=== PATIENT | male | born 1975 | race Caucasian/White ===

== ENCOUNTER 2018-02-15 22:11 | Emergency (ER) | payer SELFPAY ==
[2018-02-15 22:16] VITALS: BP 143/91; PULSE 74; TEMP 98.2; BMI 32.9
--- NOTE | 2018-02-16 00:38 | PDOC ---
Attending Attestation - HPI HPI: 02/16/18 01:16 The patient is a 42 year old male with no past medical history here today for evaluation of chest pain. The patient reports that his chest pain has been going on for one week and has been getting worse. He reports that his chest pain comes in episodes of 30 minutes and radiates to his back. He describes his chest pain as a burning sensation. Patient denies headache, lightheadedness. Denies fever, chills. Denies chest pain, shortness of breath. Denies nausea, vomiting, diarrhea, abdominal pain. Denies lower extremity edema. Denies any numbness or tingling. Allergies: NKA Social history: Denies alcohol use. Confirms tobacco use (5 cigarettes per week) . PCP: none - Physicial Exam PE: 02/16/18 01:48 GENERAL: Awake, alert, and fully oriented, in no acute distress HEAD: No signs of trauma EYES: PERRLA, EOMI, sclera anicteric, conjunctiva clear ENT: Auricles normal inspection, hearing grossly normal, nares patent, oropharynx clear without exudates. Moist mucosa NECK: Normal ROM, supple, no lymphadenopathy, JVD, or masses LUNGS: Breath sounds equal, clear to auscultation bilaterally. No wheezes, and no crackles HEART: Regular rate and rhythm, normal S1 and S2, no murmurs, rubs or gallops ABDOMEN: Soft, nontender, normoactive bowel sounds. No guarding, no rebound. No masses EXTREMITIES: Normal range of motion, no edema. No clubbing or cyanosis. No cords, erythema, or tenderness NEUROLOGICAL: Cranial nerves II through XII grossly intact. Normal speech, normal gait SKIN: Warm, Dry, normal turgor, no rashes or lesions noted. <Mike Solis - Last Filed: 02/16/18 01:52> - Resident Resident Name: Roberto William - Medical Decision Making 02/16/18 21:56 PT presents to the ED complaining of atypical chest pain. Low risk for cardiac disease. EKG and troponin within normal limits. HEART score is 2. Will discharge home with referral to medical clinic. <Mirtha Diaz - Last Filed: 02/16/18 22:00>
--- NOTE | 2018-02-16 01:37 | PDOC ---
History of Present Illness - General Chief Complaint: Chest Pain Stated Complaint: CHEST PAIN, BACK PAIN Time Seen by Provider: 02/16/18 00:37 History Source: Patient Exam Limitations: No Limitations - History of Present Illness Initial Comments: 02/16/18 01:25 Pt. is a 42 y.o. M w/ PMHx/PSHx. 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 Pt. states that the pain began 1 week ago and has gotten progressively worse. Pt. states that it began as 1 episode of constant burning pain per day that lasted 20-30 min and is not happening 2-3 times per day. Pt. denies any association with food intake, activity or position. Pt. denies any family history of cardiac disease. Pt. denies this ever happening before. Pt. denies shortness of breath, radiation of pain to the jaw or left arm, or numbness/tingling in extremities. Pt. states he smokes 1-2 cigarettes per day intermittently. Pt. does not have a PCP and has not seen a physician other than his District Attorney 3 months ago. Past History - Travel Traveled outside of the country in the last 30 days: No Close contact w/someone who was outside of country & ill: No - Past Medical History Allergies/Adverse Reactions: Allergies Allergy/AdvReac Type Severity Reaction Status Date / Time No Known Allergies Allergy Verified 02/15/18 22:16 Anemia: No Asthma: No Cancer: No Cardiac Disorders: No Hx Myocardial Infarction: No CVA: No COPD: No CHF: No DVT: No Diabetes: No - Surgical History Abdominal Surgery: No Cardiac Surgery: No Gastric Stapling: No GI Surgery: No - Suicide/Smoking/Psychosocial Hx Smoking History: Never smoked Have you smoked in the past 12 months: No Information on smoking cessation initiated: No Hx Alcohol Use: No Drug/Substance Use Hx: No Review of Systems - Review of Systems Able to Perform ROS?: Yes Is the patient limited Vietnamese proficient: Yes Constitutional: No: Chills, Fever, Night Sweats, Weakness HEENTM: Yes: Blurred Vision. No: Throat Pain, Difficulty Swallowing Respiratory: No: Cough, Orthopnea, Shortness of Breath, SOB with Exertion, SOB at Rest, Wheezing, Productive cough Cardiac (ROS): Yes: Chest Pain. No: Edema, Irregular Heart Rate, Lightheadedness, Palpitations ABD/GI: No: Constipated, Diarrhea, Difficulty Swallowing, Nausea, Vomiting : No: Burning, Dysuria, Discharge, Frequency, Flank Pain Musculoskeletal: Yes: Back Pain. No: Muscle Pain, Muscle Weakness Neurological: No: Headache, Numbness, Paresthesia, Seizure, Tingling, Tremors, Weakness, Dizziness *Physical Exam - Vital Signs Last Vital Signs Temp Pulse Resp BP Pulse Ox 98.2 F 74 16 143/91 100 02/15/18 22:15 02/15/18 22:15 02/15/18 22:15 02/15/18 22:15 02/15/18 22:15 - Physical Exam General Appearance: Yes: Nourished, Appropriately Dressed, Apparent Distress HEENT: positive: Normal ENT Inspection, Normal Voice, Symmetrical Neck: positive: Trachea midline, Supple Respiratory/Chest: positive: Lungs Clear, Normal Breath Sounds. negative: Chest Tender, Accessory Muscle Use, Crackles, Wheezing Cardiovascular: positive: Regular Rhythm, Regular Rate, S1, S2. negative: Edema , JVD, Murmur Vascular Pulses: Dorsalis-Pedis (R): 2+, Doralis-Pedis (L): 2+ Gastrointestinal/Abdominal: positive: Normal Bowel Sounds. negative: Tender, Distended, Guarding, Rebound, Tenderness Musculoskeletal: positive: Normal Inspection. negative: CVA Tenderness Extremity: positive: Normal Inspection. negative: Tender, Calf Tenderness Integumentary: positive: Normal Color, Dry, Diaphoresis Neurologic: positive: Fully Oriented, Alert, Normal Response Moderate Sedation - Procedure Monitoring Vital Signs: Procedure Monitoring Vital Signs Temperature 98.2 F 02/15/18 22:15 Pulse Rate 74 02/15/18 22:15 Respiratory Rate 16 02/15/18 22:15 Blood Pressure 143/91 02/15/18 22:15 O2 Sat by Pulse Oximetry (%) 100 02/15/18 22:15 ED Treatment Course - LABORATORY CBC & Chemistry Diagram: 02/16/18 01:55 02/16/18 01:55 *DC/Admit/Observation/Transfer Diagnosis at time of Disposition: Chest pain - Discharge Dispostion Disposition: HOME Condition at time of disposition: Stable - Referrals Referrals: Praveen Mujica MD [Staff Physician] - 1 week - Patient Instructions Printed Discharge Instructions: DI for Atypical Chest Pain, DI for Chest Pain Additional Instructions: You came in for chest pain. We evaluated you and you had a normal EKG. Please follow up with your Primary Care Physician with in 1 week. We have provided you wit boyce physician if you do not have a PCP. Please return to the ER if you are experiencing worsening chest pain, shortness of breath, numbness/tingling in your hands or any other concerning symptoms. - Post Discharge Activity
[2018-02-16 02:12] LABS: BASO % 0.5 % (0-2.0); EOS % 4.4 % (0-4.5); HEMATOCRIT 40.8 % (35.4-49); HEMOGLOBIN 14.9 GM/dL (11.7-16.9); LYMPH % 27.4 % (8-40); MCHC 36.5 g/dl (32.0-35.9); MEAN CELL VOLUME 87.6 fl (80-96); MEAN PLT VOLUME 8.2 fl (7.5-11.1); MONO % 6.2 % (3.8-10.2); NEUT % 61.5 % (42.8-82.8); PLATELET COUNT 229 K/MM3 (134-434); RBC 4.65 M/mm3 (4.00-5.60); RDW 13.3 % (11.9-15.9); WHITE BLOOD COUNT 6.9 K/mm3 (4.0-10.0)
[2018-02-16 02:45] LABS: ALK PHOS 87 U/L (45-117); ANION GAP 8 MMOL/L (8-16); BILIRUBIN,TOTAL 0.5 mg/dL (0.2-1); BLOOD UREA NITROGEN 18 mg/dL (7-18); CALCIUM 8.8 mg/dL (8.5-10.1); CHLORIDE 105 mmol/L (98-107); CO2 26 mmol/L (21-32); CREATININE 0.8 mg/dL (0.55-1.3); GLUCOSE,RANDOM 96 mg/dL (74-106); INR 1.11 (0.83-1.09); MAGNESIUM 2.2 mg/dL (1.8-2.4); POTASSIUM 3.9 mmol/L (3.5-5.1); PROTHROMBIN TIME (PATIENT) 13.1 SEC (9.7-13.0); SGOT/AST 23 U/L (15-37); SGPT/ALT 36 U/L (13-61); SODIUM 139 mmol/L (136-145); TOT PROT 7.5 g/dl (6.4-8.2)
--- NOTE | 2018-02-17 07:18 | EKG ---
Test Reason : Blood Pressure : / mmHG Vent. Rate : 071 BPM Atrial Rate : 071 BPM P-R Int : 174 ms QRS Dur : 092 ms QT Int : 386 ms P-R-T Axes : 035 025 026 degrees QTc Int : 419 ms NORMAL SINUS RHYTHM NORMAL ECG NO PREVIOUS ECGS AVAILABLE Confirmed by ROSSI CANCHOLA MD ([id number]) on 02/17/2018 7:17:47 AM Referred By: Confirmed By:ROSSI CANCHOLA MD
== END 2018-02-16 03:15 | disposition home or self-care (01) ==
LOC: JER 22:11
CPT/HCPCS: 36415; 71046-TC-FY; 80053; 82550; 82553; 83735; 84484; 85025; 85610; 93005; 93010; 99283-25

== ENCOUNTER 2018-07-06 18:48 | Emergency (ER) | payer SELFPAY ==
[2018-07-06 19:00] VITALS: BP 129/80; PULSE 66; TEMP 98; BMI 32.3
--- NOTE | 2018-07-06 19:28 | PDOC ---
History of Present Illness - General Chief Complaint: Sore Throat Stated Complaint: SORE THROAT Time Seen by Provider: 07/06/18 19:06 History Source: Patient Exam Limitations: No Limitations - History of Present Illness Initial Comments: 07/06/18 19:25 Patient is here with complaints of her throat pain that was concerned was related to his gastric and abdominal upset. States had postnasal drainage over the past few days that is progressively worsening however is without fever, without chills, and without cough. Has taken no medications for relief of symptoms, and saw Dr. Otto last week and has had an extensive cardiac workup, and hadlengthy evaluation for the abdominal pain where he is taking now and antiacid. Timing/Duration: reports: getting worse Severity: reports: mild, moderate Past History - Past Medical History Allergies/Adverse Reactions: Allergies Allergy/AdvReac Type Severity Reaction Status Date / Time No Known Allergies Allergy Verified 07/06/18 18:57 Home Medications: Ambulatory Orders NK [No Known Home Medication] 07/06/18 Anemia: No Asthma: No Cancer: No Cardiac Disorders: No CVA: No COPD: No CHF: No DVT: No Diabetes: No - Surgical History Abdominal Surgery: No Cardiac Surgery: No Gastric Stapling: No GI Surgery: No - Suicide/Smoking/Psychosocial Hx Smoking History: Never smoked Have you smoked in the past 12 months: No Hx Alcohol Use: No Drug/Substance Use Hx: No Review of Systems - Review of Systems Able to Perform ROS?: Yes Is the patient limited Mohawk proficient: Yes Constitutional: Yes: Symptoms Reported, See HPI. No: Chills, Fever HEENTM: Yes: See HPI, Nose Congestion, Throat Pain (with posterior sinus ). No : Symptoms Reported Respiratory: Yes: See HPI. No: Symptoms reported All Other Systems: Reviewed and Negative *Physical Exam - Vital Signs Last Vital Signs Temp Pulse Resp BP Pulse Ox 98 F 66 18 129/80 99 07/06/18 18:58 07/06/18 18:58 07/06/18 18:58 07/06/18 18:58 07/06/18 18:58 - Physical Exam General Appearance: Yes: Nourished, Appropriately Dressed, Apparent Distress, Mild Distress HEENT: positive: EOMI, CHELSEA, TMs Normal (congested wiht scarring noted ), Pharynx Normal (but noted posterior sinus drainage), Nasal Congestion, Rhinorrhea Neck: positive: Supple. negative: Tender, Lymphadenopathy (R), Lymphadenopathy (L) Respiratory/Chest: positive: Lungs Clear, Normal Breath Sounds Cardiovascular: positive: Regular Rate Gastrointestinal/Abdominal: positive: Soft. negative: Tender Musculoskeletal: positive: Normal Inspection Extremity: positive: Normal Inspection, Tender Integumentary: positive: Normal Color, Dry, Warm Neurologic: positive: nursing informatics specialist II-XII NML intact, Fully Oriented, Alert, Normal Mood/ Affect, Normal Response, Motor Strength /5 Progress Note - Progress Note Progress Note: Posterior sinus drainage associated with common cold. No evidence of significant pathologic. Has appointment to see this week for follow- up with his gastritis *DC/Admit/Observation/Transfer Diagnosis at time of Disposition: Upper respiratory infection, viral - Discharge Dispostion Disposition: HOME Condition at time of disposition: Stable Decision to Admit order: No - Referrals - Patient Instructions Printed Discharge Instructions: DI for Viral Upper Respiratory Infection -- Adult Additional Instructions: Rest, drink lots of fluids: Teas, water, soups, Pedialyte Saltwater gargles Steamy showers/seem to face break up mucus Avoid contact with others until fevers and cough resolved Lots of handwashing and good hygiene Continue [id number] medications for symptomatic relief Tylenol or Motrin for fever and pain Followup with private physician in one to 2 days as needed Return to emergency department for worsened symptoms, fevers, dehydration - Post Discharge Activity Forms/Work/School Notes: Back to Work
== END 2018-07-06 19:33 | disposition home or self-care (01) ==
LOC: JERFT 18:48
DX: J06.9 Acute upper respiratory infection, unspecified (principal)
CPT/HCPCS: 99281-25

== ENCOUNTER 2018-10-23 00:51 | Observation (INO) | payer SELFPAY ==
--- NOTE | 2018-10-23 01:07 | PDOC ---
History of Present Illness - General History Source: Patient Exam Limitations: No Limitations - History of Present Illness Initial Comments: Pt is a 43 yo M, with PMH of R retina repair, who is presenting with L sided chest pain. Pt states the pain has occurred before, and has been ongoing for the past few weeks, which has worsened over the past few days. Pt states it is sharp and stabbing sensation, which is now radiating down his L arm, L leg, and towards his L upper back. He also feels a "tight squeezing sensation in his throat". The episodes last 30-45 minutes and occur without exertion. Pt was recently seen at [facility] ER for similar complaint, with negative troponin, normal ECG, and normal chest x-ray, with pain improved by pepcid. Tylenol and pepcid have only minimally reduced his symptoms outpatient. Pt denies any recent fevers /chills, headache, vision changes, syncope, palpitations, cough, SOB, nausea/ vomiting, diarrhea, hematuria, urinary frequency or polyuria, or leg swelling. Allergies: NKDA PCP: None Pt had outpatient cardiac stress test done (Dr. Malhotra) after the last episode of this pain ~5 months ago, and "everything was normal". Social: Pt denies any cigarette, alcohol, or drug use. Pt denies any recent travel or sick contacts. Surgical: no relevant history. Family: no relevant history. 10/23/18 02:22 <Chelsea Partida - Last Filed: 10/23/18 04:45> <Bryn Rizo - Last Filed: 10/23/18 05:10> - General Stated Complaint: PAIN Time Seen by Provider: 10/23/18 01:06 Past History - Travel Traveled outside of the country in the last 30 days: No Close contact w/someone who was outside of country & ill: No - Past Medical History Anemia: No Asthma: No Cancer: No Cardiac Disorders: No CVA: No COPD: No CHF: No DVT: No Diabetes: No - Surgical History Abdominal Surgery: No Cardiac Surgery: No Gastric Stapling: No GI Surgery: No - Suicide/Smoking/Psychosocial Hx Smoking History: Never smoked Have you smoked in the past 12 months: No Hx Alcohol Use: No Drug/Substance Use Hx: No <Chelsea Partida - Last Filed: 10/23/18 04:45> <Bryn Rizo - Last Filed: 10/23/18 05:10> - Past Medical History Allergies/Adverse Reactions: Allergies Allergy/AdvReac Type Severity Reaction Status Date / Time No Known Allergies Allergy Verified 10/23/18 01:09 Home Medications: Ambulatory Orders Famotidine [Pepcid] 20 mg PO DAILY #20 tablet 10/17/18 Review of Systems - Review of Systems Able to Perform ROS?: Yes Is the patient limited [place] proficient: No Constitutional: Yes: Weight Stable. No: Chills, Diaphoresis, Fever, Loss of Appetite, Malaise, Weakness HEENTM: No: Recent change in vision, Nose Congestion, Throat Pain, Throat Swelling, Difficulty Swallowing Respiratory: No: Cough, Orthopnea, Shortness of Breath Cardiac (ROS): Yes: See HPI, Chest Pain. No: Edema, Irregular Heart Rate, Lightheadedness, Palpitations, Syncope, Chest Tightness ABD/GI: Yes: Nausea. No: Constipated, Diarrhea, Poor Appetite, Poor Fluid Intake, Vomiting : No: Burning, Dysuria, Frequency, Pain, Urgency Musculoskeletal: No: Back Pain, Joint Pain, Muscle Pain, Muscle Weakness Integumentary: No: Rash Neurological: No: Headache, Numbness, Paresthesia, Weakness, Unsteady Gait, Dizziness Psychiatric: No: Sleep Pattern Change, Change in Appetite Endocrine: No: Increased Urine, Change in Weight Hematologic/Lymphatic: No: Anemia, Blood Clots, Easy Bleeding, Easy Bruising All Other Systems: Reviewed and Negative <Chelsea Partida - Last Filed: 10/23/18 04:45> *Physical Exam - Physical Exam Comments: Vitals stable, pt afebrile. Pt in NAD, lying on the bed comfortably. Obese body habitus. Pt alert and oriented x3. manager field investigations generally intact, muscular strength and sensation intact. No midline spinal tenderness, step-offs, or crepitus. Head normocephalic, atraumatic. Eyes PERRLA, EOMI. Oropharynx without erythema or exudates, no LAD b/l. No nasal congestion, hearing intact. Clear heart sounds, S1/S2, no JVD, b/l pedal edema, or heart murmur. Clear lung sounds, no respiratory distress, wheezes, crackles, or accessory muscle use. No abdominal or CVA tenderness to palpation, no rebound, no guarding. Abdomen soft, non-distended, and with normoactive bowel sounds. No reproducible chest wall TTP. Skin without jaundice or rash. 10/23/18 02:27 <JaquanChelsea - Last Filed: 10/23/18 04:45> - Vital Signs Last Vital Signs Temp Pulse Resp BP Pulse Ox 97.9 F 58 L 20 135/87 98 10/23/18 01:10 10/23/18 01:10 10/23/18 01:10 10/23/18 01:10 10/23/18 01:10 <Bryn Rizo - Last Filed: 10/23/18 05:10> Heart Score/ECG Review - History History: Moderately suspicious - Electrocardiogram EKG: Normal - Age Age: 45-65 - Risk Factors Risk Factors Heart Score: Yes Hx Obesity Based on the list above the patient has:: 1-2 risk factors - Troponin Troponin: </= normal limit - Score Heart Score - Total: 3 <JaquanChelsea - Last Filed: 10/23/18 04:45> ED Treatment Course - LABORATORY CBC & Chemistry Diagram: 10/23/18 01:30 10/23/18 01:30 <JaquanChelsea - Last Filed: 10/23/18 04:45> - LABORATORY CBC & Chemistry Diagram: 10/23/18 01:30 10/23/18 01:30 - ADDITIONAL ORDERS Additional order review: Laboratory Results 10/23/18 10/23/18 10/23/18 01:30 01:30 01:30 Sodium 141 Cancelled Potassium 4.1 Cancelled Chloride 104 Cancelled Carbon Dioxide 30 Cancelled Anion Gap 6 L Cancelled BUN 18.4 H Cancelled Creatinine 0.8 Cancelled Est GFR (CKD-EPI)AfAm 125.04 Cancelled Est GFR (CKD-EPI)NonAf 107.88 Cancelled Random Glucose 96 Cancelled Calcium 9.2 Cancelled Total Bilirubin 0.4 Cancelled AST 23 Cancelled ALT 44 Cancelled Alkaline Phosphatase 86 Cancelled Troponin I < 0.02 Total Protein 7.4 Cancelled Albumin 4.0 Cancelled Lipase 145 10/23/18 01:30 RBC 4.95 MCV 88.5 MCHC 34.0 RDW 13.6 MPV 8.0 Neutrophils % 48.9 Lymphocytes % 38.3 Monocytes % 7.6 Eosinophils % 4.9 H Basophils % 0.3 - Medications Given in the ED: ED Medications Discontinued Medications Generic Name Dose Route Start Last Admin Trade Name Rita PRN Reason Stop Dose Admin Acetaminophen 1,000 mg 10/23/18 01:38 10/23/18 01:50 Ofirmev Injection - IVPB 10/23/18 01:39 1,000 mg ONCE ONE Administration Famotidine/Sodium Chloride 20 mg in 50 mls @ 100 mls/hr 10/23/18 01:38 01:50 Pepcid 20 Mg Premixed Ivpb - IVPB 10/23/18 02:07 100 mls/hr ONCE ONE Administration Sodium Chloride 1,000 mls @ 1,000 mls/hr 10/23/18 01:38 10/23/18 01:50 Normal Saline - IV 10/23/18 02:37 1,000 mls/hr ASDIR STA Administration Ondansetron HCl 4 mg 10/23/18 01:38 10/23/18 01:50 Zofran Injection IVPUSH 10/23/18 01:39 4 mg ONCE ONE Administration <Bryn Rizo - Last Filed: 10/23/18 05:10> Medical Decision Making - Medical Decision Making Pt was seen at bedside, also will be seen by attending Dr. Rizo. Pt presenting with worsening L-sided chest pain, which is now associated with radiation towards his back, neck, L arm, and L leg. Pt has been sent home with outpatient medications with minimal relief. Will repeat cardiac work-up to eval for ACS, but will also obtain CTA of chest and abdomen to r/o aortic dissection. Provided 1 L IV NS, 1 g ofirmev, 20 mg IV pepcid, 4 mg IV zofran for improvement of nausea and pain. Will continue to reassess pt and monitor for symptomatic improvement. ECG: Sinus bradycardia (HR 55, IN 178, QRS 86, QTc 420). No TWIs or significant ST segment changes. No significant changes from prior ECG (10/17/2018). 10/23/18 02:28 CBC and CMP WNL Renal function ok for contrast Bedside echo showed good contractility. Pt being taken for CTA. 10/23/18 03:02 IV line infiltrated during CTA, but negative for any thoracic or abdominal aortic aneursym. Paging hospitalist team for admission to tele/obs. 10/23/18 04:15 Pt admitted to hospitalist team (Dr. Vogel) for cards evaluation and telemetry. Pt still having intermittent chest discomfort. 10/23/18 04:45 <Chelsea Partida - Last Filed: 10/23/18 04:45> *DC/Admit/Observation/Transfer - Discharge Dispostion Decision to Admit order: Yes <Chelsea Partida - Last Filed: 10/23/18 04:45> - Attestations Physician Attestion: 10/23/18 05:10 I have reviewed the plan as documented and agree with current plan as documented. Electronically co-signed by Bryn Rizo MD <Bryn Rizo - Last Filed: 10/23/18 05:10> Diagnosis at time of Disposition: Chest pain - Discharge Dispostion Condition at time of disposition: Stable
[2018-10-23] MEDS ORDERED: FAMOTIDINE 20 MG/50 ML IVPB 20 MG/50 ML MG IVPB ONE ×2 (01:38→01:51)
[2018-10-23] MEDS ORDERED: SODIUM CHLORIDE 1,000 ML IV STA (01:38)
[2018-10-23] MEDS ORDERED: ONDANSETRON 4 MG/2 ML VIAL IVPUSH ONE (01:38)
[2018-10-23] MEDS ORDERED: ACETAMINOPHEN 1000 MG/100 ML VIAL (NON FORMULARY) IVPB ONE (01:38)
[2018-10-23 01:46] LABS: BASO % 0.3 % (0-2.0); EOS % 4.9 % (0-4.5); HEMATOCRIT 43.8 % (35.4-49); HEMOGLOBIN 14.9 GM/dL (11.7-16.9); LYMPH % 38.3 % (8-40); MCH 30.1 pg (25.7-33.7); MEAN CELL VOLUME 88.5 fl (80-96); MONO % 7.6 % (3.8-10.2); NEUT % 48.9 % (42.8-82.8); PLATELET COUNT 235 K/MM3 (134-434); RBC 4.95 M/mm3 (4.00-5.60); RDW 13.6 % (11.9-15.9); WHITE BLOOD COUNT 5.9 K/mm3 (4.0-10.0)
[2018-10-23] MEDS ORDERED: ACETAMINOPHEN INJECTION 100 ML IVPB ONE (01:51)
[2018-10-23] MEDS ORDERED: ONDANSETRON 4 MG/2 ML VIAL ONE (01:51)
--- NOTE | 2018-10-23 02:28 | PDOC ---
Attending Attestation - Resident Resident Name: Chelsea Partida - HPI HPI: 10/23/18 02:26 43m hx GERD presents with chest pain. Describes pain in the left chest radiating to the back and down the left arm. Seen multiple times in ED for same, discharged after neg trops/EKGs. Negative stress test several months ago. Seen 1 week ago for same pain, though described LUQ pain at that time, discharged after negative workup. No nausea, burning epigastric pain. Denies any fevers, cough, SOB. No recent travel , leg swelling, no hx pe/dvt. 10/23/18 02:28 10/23/18 02:29 - Physicial Exam PE: 10/23/18 02:30 lying in stretcher nad speaking in full sentences not diaphoretic mmm rrr s1 s2 no mrg CTAB pain reproducible with palpation of the left chest wall soft non distended, non tender abdomen radial pulses equal bilaterally - Medical Decision Making 10/23/18 02:31 Chest pain radiating to L arm mult prior visits for same with neg cardiac workup labs trops ekg CTA dissection protocl given radiation to upper back dispo per CTA if neg will f/u PMD
[2018-10-23 02:39] LABS: BILIRUBIN,TOTAL 0.4 mg/dL (0.2-1); BLOOD UREA NITROGEN 18.4 mg/dL (7-18); CALCIUM 9.2 mg/dL (8.5-10.1); CREATININE 0.8 mg/dL (0.55-1.3); POTASSIUM 4.1 mmol/L (3.5-5.1); TOT PROT 7.4 g/dl (6.4-8.2)
--- NOTE | 2018-10-23 04:41 | PN ---
Teaching Attending Note Name of Resident: Vicente Jaime ATTENDING PHYSICIAN STATEMENT I saw and evaluated the patient. I reviewed the resident's note and discussed the case with the resident. I agree with the resident's findings and plan as documented. SUBJECTIVE: Patient is a 43 year old man with PMH of Right retina repair and GERD, who is presenting with left sided chest pain. Patient says the pain has occurred before , and has been ongoing for the past few weeks but has worsened over the past few days. He describes the pain as sharp and stabbing sensation, which is now radiating down his left arm, left leg and towards his left upper back. He also feels a "tight squeezing sensation in his throat". The episodes last 30-45 minutes and occur without exertion. Patient was recently seen at [facility] ER on 10/17 for LUQ abdominal pain. Workup including troponin, ECG and chest x-ray were negative. Pain improved with pepcid and she was discharged with a presumptive diagnosis of gastritis. Patient denies any recent fevers/chills, headache, vision changes, syncope, palpitations, cough, SOB, nausea/vomiting, diarrhea, hematuria, urinary frequency or polyuria, or leg swelling. Patient denies any cigarette, alcohol, or drug use. Patient denies any recent travel or sick contacts. No FH of chronic medical problems. Reportedly had outpatient cardiac stress test done ( Dr. Malhotra) after the last episode of this pain ~5 months ago, and "everything was normal". OBJECTIVE: Alert Vital Signs Period Temp Pulse Resp BP Sys/Constantino Pulse Ox Last 24 Hr 97.9 F 58 20 135/87 98 HEENT: No Jaundice, eye redness or discharge, PERRLA, EOMI. Normocephalic, atraumatic. External ears are normal and hearing is grossly intact. No nasal discharge. Neck: Supple, nontender. No palpable adenopathy or thyromegaly. No JVD Chest: Good effort. Clear to auscultation and percussion. Heart: Regular. No S3, rub or murmur Abdomen: Not distended, soft, nontender and no HSM. No rebound or guarding. Normal bowel sounds. Ext: Peripheral pulses intact. No leg edema. Skin: Warm and dry. No petechiae, rash or ecchymosis. Neuro: Alert. Oriented x3. CN 2-12 grossly intact. Sensation grossly intact in all four extremities and DTR are symmetric. Psych: Appropriate mood and affect. Good insight. Home Medications Medication Instructions Recorded Famotidine [Pepcid] 20 mg PO DAILY #20 tablet 10/17/18 Abnormal Lab Results 10/23/18 10/23/18 01:30 01:30 Eosinophils % 4.9 H Anion Gap 6 L BUN 18.4 H ASSESSMENT AND PLAN: 1. Chest pain - Etiology of pain is unclear. No acute pathology on CXR and Chest /Thorax/Abdomen CTA didnot show any aortic dissection or pulmonary embolism. EKG shows sinus bradycardia with no significant ST-T wave changes and initial troponin is negative. Will admit to telemetry to rule out ACS, get ECHO, fasting lipids, TSH, urinalysis, Cardiology and GI consults. Would benefit from EGD and colonoscopy. 2. Obesity Counseled on the risks associated with obesity. Will provide patient all the necessary assistance, counseling and positive reinforcement to facilitate weight loss. Consult rn stars. 3. DVT prophylaxis - Lovenox 40 mg SQ q 24 hours. 4. Advance directives - Full code
[2018-10-23] MEDS ORDERED: ACETAMINOPHEN 325 MG TABLET (FP) PO PRN (05:14)
--- NOTE | 2018-10-23 06:05 | HP ---
CHIEF COMPLAINT: chest pain PCP: none (needs PCP), previously saw Dr. Barraza and does not to f/u HISTORY OF PRESENT ILLNESS: Steve Leger is a 43 year old male with a past medical history of R retina repair who presents with left sided chest pain. Patient was recently in the ED for similar symptoms on 10/17. Patient had since that time stated that his pain has not gotten worse however has now radiated to the back, down the L arm and is present in the L leg. Stated that the pain is stabbing in nature, episodes last 30-45 minutes, and has underlying dull pain when episodes are not present. He feels tightness in his throat as well. Stated that the pain is reproducible on palpation and is worse with movement of the body. 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 Denies sob, abd pain, nausea, vomiting, fever, chills, headaches, peripheral edema, palpitations, diaphoresis. Had stress test done within the last [address] Martin which according to the patient was all within normal limits. Additionally, stated that he gets reflux type pain on occasion when he lies flat. He does not take anything for the reflux pain. Has not had EGD or colonoscopy. ER course was notable for: (1) EKG with sinus bradycardia, no acute St changes, QTc 420 (2) negative troponins (3) Chest CTA with no acute pathology, IV infiltrated and no contrast was given , nondiagnostic for PE or dissection PAST MEDICAL HISTORY: as above PAST SURGICAL HISTORY: R Retina repair Social History: Smoking: denies Alcohol: social Drugs: denies Works in a kitchen. Family History: Mother- DM, HTN Allergies No Known Allergies Allergy (Verified 10/23/18 01:09) HOME MEDICATIONS: Home Medications Medication Instructions Recorded Famotidine [Pepcid] 20 mg PO DAILY #20 tablet 10/17/18 REVIEW OF SYSTEMS CONSTITUTIONAL: Absent: fever, chills, diaphoresis, generalized weakness, malaise, loss of appetite, weight change HEENT: throat tightness Absent: rhinorrhea, nasal congestion, throat pain, throat swelling, difficulty swallowing, visual changes CARDIOVASCULAR: chest pain, Absent: syncope, palpitations, irregular heart rate, lightheadedness, peripheral edema RESPIRATORY: Absent: cough, shortness of breath, dyspnea with exertion, orthopnea, wheezing, stridor, hemoptysis GASTROINTESTINAL: dyspepsia Absent: abdominal pain, abdominal distension, nausea, vomiting, diarrhea, constipation, melena, hematochezia GENITOURINARY: Absent: dysuria, frequency, urgency, hesitancy, hematuria, flank pain, genital pain MUSCULOSKELETAL: reproducible chest pain, back pain, L leg pain, L arm pain Absent: myalgia, arthralgia, joint swelling, neck pain SKIN: Absent: rash, itching, pallor HEMATOLOGIC/IMMUNOLOGIC: Absent: easy bleeding, easy bruising, lymphadenopathy, frequent infections ENDOCRINE: Absent: unexplained weight gain, unexplained weight loss, heat intolerance, cold intolerance NEUROLOGIC: Absent: headache, focal weakness or paresthesias, dizziness, unsteady gait, seizure, mental status changes, bladder or bowel incontinence PSYCHIATRIC: Absent: anxiety, depression, suicidal or homicidal ideation, hallucinations. PHYSICAL EXAMINATION Vital Signs - 24 hr 10/23/18 01:10 Temperature 97.9 F Pulse Rate 58 L Respiratory 20 Rate Blood Pressure 135/87 O2 Sat by Pulse 98 Oximetry (%) GENERAL: Awake, alert, and fully oriented, in no acute distress. HEAD: Normal with no signs of trauma. EYES: Pupils equal, round and reactive to light, extraocular movements intact, sclera anicteric, conjunctiva clear. EARS, NOSE, THROAT: Oropharynx clear without exudates. Moist mucous membranes. NECK: Normal range of motion, supple without lymphadenopathy. LUNGS: Breath sounds equal, clear to auscultation bilaterally. No wheezes, and no crackles. No accessory muscle use. HEART: Regular rate and rhythm, normal S1 and S2 without murmur, rub or gallop. ABDOMEN: Soft, nontender, not distended, normoactive bowel sounds, no guarding, no rebound, no masses. MUSCULOSKELETAL: Normal range of motion at all joints. No bony deformities or tenderness. Reproducible chest pain to palpation. UPPER EXTREMITIES: 2+ pulses, warm, well-perfused. No cyanosis. No clubbing. No peripheral edema. LOWER EXTREMITIES: 2+ pulses, warm, well-perfused. No calf tenderness. No peripheral edema. NEUROLOGICAL: Cranial nerves II-XII intact. Muscle strength 5/5 bilaterally upper and lower extremities. PSYCHIATRIC: Cooperative. Good eye contact. Appropriate mood and affect. SKIN: Warm, dry, normal turgor, no rashes or lesions noted, normal capillary refill. Laboratory Results - last 24 hr 10/23/18 10/23/18 10/23/18 01:30 01:30 01:30 WBC 5.9 RBC 4.95 Hgb 14.9 Hct 43.8 MCV 88.5 MCH 30.1 MCHC 34.0 RDW 13.6 Plt Count 235 MPV 8.0 Absolute Neuts (auto) 2.9 Neutrophils % 48.9 Lymphocytes % 38.3 Monocytes % 7.6 Eosinophils % 4.9 H Basophils % 0.3 Nucleated RBC % 0 Sodium Cancelled 141 Potassium Cancelled 4.1 Chloride Cancelled 104 Carbon Dioxide Cancelled 30 Anion Gap Cancelled 6 L BUN Cancelled 18.4 H Creatinine Cancelled 0.8 Est GFR (CKD-EPI)AfAm Cancelled 125.04 Est GFR (CKD-EPI)NonAf Cancelled 107.88 Random Glucose Cancelled 96 Calcium Cancelled 9.2 Total Bilirubin Cancelled 0.4 AST Cancelled 23 ALT Cancelled 44 Alkaline Phosphatase Cancelled 86 Troponin I Total Protein Cancelled 7.4 Albumin Cancelled 4.0 Lipase 145 10/23/18 01:30 WBC RBC Hgb Hct MCV MCH MCHC RDW Plt Count MPV Absolute Neuts (auto) Neutrophils % Lymphocytes % Monocytes % Eosinophils % Basophils % Nucleated RBC % Sodium Potassium Chloride Carbon Dioxide Anion Gap BUN Creatinine Est GFR (CKD-EPI)AfAm Est GFR (CKD-EPI)NonAf Random Glucose Calcium Total Bilirubin AST ALT Alkaline Phosphatase Troponin I < 0.02 Total Protein Albumin Lipase EKG--> sinus bradycardia, no ST segment changes, QTc 420 ASSESSMENT/PLAN: Steve Leger is a 43 year old male with a past medical history of R retina repair who is admitted for recurrent chest pain. Chest Pain Dyspepsia hx of R retina repair Chest Pain - unclear origin of pain, r/o ACS, likely musculoskeletal vs gastro in origin - recent stress test performed, obtain records from office of Dr. Franco Martin - chest CTA nondiagnostic for PE or dissection due to infiltration of IV - Echo - A1c - lipids - TSH - cardio consulted - GI consulted, evaluate for GI origin of pain, may need EGD - cardiac monitoring - tylenol for pain Dyspepsia - previously on Pepcid with minor alleviation of pain - Protonix 20mg - GI consulted, may need evaluation via EGD Hx of R Retina repair - on prednisolone eye drops, need to confirm dose and amount with pharmacy FEN - no standing fluids - continue to monitor electrolytes and replete as necessary - regular diet Prophylaxis - Lovenox 40mg subq - early ambulation Code - full code RICHMOND BONILLA DO - PGY-1 Visit type - Emergency Visit Emergency Visit: Yes ED Registration Date: 10/23/18 Care time: The patient presented to the Emergency Department on the above date and was hospitalized for further evaluation of their emergent condition. - New Patient This patient is new to me today: Yes Date on this admission: 10/23/18 - Critical Care Critical Care patient: No
[2018-10-23 06:56] LABS: COCAINE, UR NEGATIVE ng/ml (CUTOFF=300); METHADONE, UR NEGATIVE ng/ml (CUTOFF=300); OPIATES, URI NEGATIVE ng/ml (CUTOFF=300); PHENCYCLIDINE,URINE NEGATIVE ng/ml (CUTOFF=25); URINE AMPHETAMINES NEGATIVE ng/ml (CUTOFF=500); URINE BARBITURATES NEGATIVE ng/ml (CUTOFF=200); URINE BENZODIAZEPINES NEGATIVE ng/ml (CUTOFF=200)
[2018-10-23] MEDS ORDERED: PANTOPRAZOLE 20 MG TABLET (FP) PO SCH (07:00)
[2018-10-23 08:52] LABS: HEMATOCRIT 43.1 % (35.4-49); MCH 30.5 pg (25.7-33.7); MCHC 34.7 g/dl (32.0-35.9); MEAN CELL VOLUME 87.9 fl (80-96); MEAN PLT VOLUME 7.6 fl (7.5-11.1); PLATELET COUNT 223 K/MM3 (134-434); RBC 4.91 M/mm3 (4.00-5.60); RDW 13.5 % (11.9-15.9); WHITE BLOOD COUNT 5.7 K/mm3 (4.0-10.0)
[2018-10-23 09:13] LABS: CHOLESTEROL 221 mg/dL (50-200); HDL CHOLESTEROL 66 mg/dL (40-60); TRIGLYCERIDES 181 mg/dL (0-150)
[2018-10-23 09:22] LABS: ALBUMIN 3.9 g/dl (3.4-5.0); ALK PHOS 70 U/L (45-117); ANION GAP 5 MMOL/L (8-16); BILIRUBIN,TOTAL 0.7 mg/dL (0.2-1); BLOOD UREA NITROGEN 14.2 mg/dL (7-18); CALCIUM 8.9 mg/dL (8.5-10.1); CHLORIDE 106 mmol/L (98-107); CO2 28 mmol/L (21-32); CREATININE 0.7 mg/dL (0.55-1.3); GLUCOSE,RANDOM 98 mg/dL (74-106); MAGNESIUM 2.5 mg/dL (1.8-2.4); SGOT/AST 24 U/L (15-37); SGPT/ALT 41 U/L (13-61); SODIUM 139 mmol/L (136-145); TOT PROT 7.1 g/dl (6.4-8.2)
[2018-10-23] MEDS ORDERED: ENOXAPARIN NA (PORCINE) 40 MG/0.4 ML DISP.SYRIN SQ SCH (10:00)
--- NOTE | 2018-10-23 10:23 | CON.CARD ---
Consult Consult Specialty:: cardiology Reason for Consultation:: recurrent chest pain - History of Present Illness Chief Complaint: Pt a&oX3; c/o ongoing mild-moderate kinfelike chest pain left anterior chest wall (reproduced by light palptations History of Present Illness: 43m hx GERD, obesity, HTN, hyperlipidemia, presents with chest pain. Describes pain in the left chest radiating to the back and down the left arm. Seen multiple times in ED for same, discharged after neg trops/EKGs. Negative stress test several months ago. Seen 1 week ago for same pain, though described LUQ pain at that time, discharged after negative workup. No nausea, burning epigastric pain. Denies any fevers, cough, SOB. No recent travel , leg swelling, no hx pe/dvt. - History Source History Provided By: Patient, Medical Record Limitations to Obtaining History: No Limitations - Alcohol/Substance Use Hx Alcohol Use: No - Smoking History Smoking history: Never smoked Have you smoked in the past 12 months: No Home Medications - Allergies Allergies/Adverse Reactions: Allergies Allergy/AdvReac Type Severity Reaction Status Date / Time No Known Allergies Allergy Verified 10/23/18 01:09 - Home Medications Home Medications: Ambulatory Orders Famotidine [Pepcid] 20 mg PO DAILY #20 tablet 10/17/18 Family Disease History - Family Disease History Family History: Denies - Risk Factors Known Risk Factors: Yes: Age, Gender, Hypercholesterolemia, Hypertension, Physical Inactivity, Smoking (quit many years ago). No: Family History Vital Signs: Vital Signs Temperature 97.8 F 10/23/18 06:29 Pulse Rate 52 L 10/23/18 06:29 Respiratory Rate 18 10/23/18 06:29 Blood Pressure 108/57 L 10/23/18 06:29 O2 Sat by Pulse Oximetry (%) 98 10/23/18 06:29 Abnormal Lab Results 10/23/18 10/23/18 10/23/18 01:30 01:30 08:30 Eosinophils % 4.9 H Anion Gap 6 L 5 L BUN 18.4 H Magnesium 2.5 H Triglycerides Cholesterol Total LDL Cholesterol HDL Cholesterol 10/23/18 08:30 Eosinophils % Anion Gap BUN Magnesium Triglycerides 181 H Cholesterol 221 H Total LDL Cholesterol 138 H HDL Cholesterol 66 H Constitutional: Yes: Anxious, Obese Eyes: Yes: WNL HENT: Yes: WNL Neck: Yes: WNL Respiratory: Yes: WNL Gastrointestinal: Yes: WNL Renal/: Yes: WNL Cardiovascular: Yes: WNL JVD: No Carotid Bruit: No PMI: Non-Displaced Heart Sounds: Yes: S1, S2 Musculoskeletal: Yes: WNL Extremities: Yes: WNL Edema: No Peripheral Pulses WNL: Yes Integumentary: Yes: WNL Neurological: Yes: WNL ...Motor Strength: WNL Psychiatric: Yes: Alert, Oriented, Other (anxiety) - Other Data Labs, Other Data: CBC, BMP 10/23/18 08:30 10/23/18 08:30 Troponin, BNP 10/23/18 10/23/18 01:30 08:30 Troponin I < 0.02 < 0.02 Troponin, BNP 10/23/18 10/23/18 01:30 08:30 Troponin I < 0.02 < 0.02 Abnormal Lab Results 10/23/18 10/23/18 10/23/18 01:30 01:30 08:30 Eosinophils % 4.9 H Anion Gap 6 L 5 L BUN 18.4 H Magnesium 2.5 H Triglycerides Cholesterol Total LDL Cholesterol HDL Cholesterol 10/23/18 08:30 Eosinophils % Anion Gap BUN Magnesium Triglycerides 181 H Cholesterol 221 H Total LDL Cholesterol 138 H HDL Cholesterol 66 H Ejection Fraction %: LVEF > or = 40 % Imaging - Results Chest X-ray: Image Reviewed EKG: Image Reviewed Problem List - Problems (1) Atypical chest pain Assessment/Plan: Pt has had chest discomfort for the past 4 months. Stress treadmill ECHO 3 months ago: no ischemia or arrhythmias; good exercise functional capacity (walked >10 minutes using Kenan protocol); asymptoamtic throughout the examination. Pt underwent CTA to r/o aortic dissection (has had mild-moderate pulatile pain in left anterior chest wall above the breast (though pain is reproduced by palpation of the area) and pulsatilile lower back pain off and on the for the 2- 3 mnths. If CTA is negaive, pt may be followed up as outpatient from cardiac perspective. Start statin. Pt was encouraged to decrease; portion control, proper food choices, and exercise would benefit her in creaching this goal. Code(s): R07.89 - OTHER CHEST PAIN (2) Hyperlipidemia Code(s): E78.5 - HYPERLIPIDEMIA, UNSPECIFIED (3) Obesity (BMI 30.0-34.9) Code(s): E66.9 - OBESITY, UNSPECIFIED (4) Sedentary lifestyle Code(s): Z91.89 - OTH PERSONAL RISK FACTORS, NOT ELSEWHERE CLASSIFIED (5) Chronic lower back pain Code(s): M54.5 - LOW BACK PAIN; G89.29 - OTHER CHRONIC PAIN
--- NOTE | 2018-10-23 10:31 | EKG ---
Test Reason : Blood Pressure : / mmHG Vent. Rate : 055 BPM Atrial Rate : 055 BPM P-R Int : 178 ms QRS Dur : 086 ms QT Int : 440 ms P-R-T Axes : 043 049 055 degrees QTc Int : 420 ms SINUS BRADYCARDIA OTHERWISE NORMAL ECG WHEN COMPARED WITH ECG OF 23-OCT-2018 01:00, PREVIOUS ECG HAS UNDETERMINED RHYTHM, NEEDS REVIEW Confirmed by JOLIE YANCEY MD ([id number]) on 10/23/2018 10:30:40 AM Referred By: Confirmed By:JOLIE YANCEY MD
--- NOTE | 2018-10-23 10:55 | ECHO ---
Name: KRISTOPHER ABDALLA MICHELL Exam:Adult Echocardiogram Study Date: 10/23/2018 07:39 AM Age: 43 yrs Reason For Study: Evalute Cardiac Function Height: 66 in Weight: 205 lb BSA: 2.0 m2 MMode/2D Measurements & Calculations IVSd: 0.81 cm Ao root diam: 3.5 cm LVIDd: 3.8 cm ACS: 2.0 cm LVIDs: 2.9 cm LVPWd: 1.5 cm EDV(Teich): 63.5 ml LVOT diam: 2.0 cm ESV(Teich): 32.1 ml RV S Juve: 12.3 cm/sec Doppler Measurements & Calculations MV E max juve: 96.0 cm/sec MV A max juve: 60.1 cm/sec MV dec slope: 451.1 cm/sec2 MV E/A: 1.6 Ao V2 max: 112.9 cm/sec TR max juve: 229.4 cm/sec Ao max P.1 mmHg TR max P.3 mmHg Ao V2 mean: 86.8 cm/sec Ao mean P.3 mmHg Ao V2 VTI: 28.4 cm Med Peak E' Juve: 9.2 cm/sec Med E/e': 10.4 Lat Peak E' Juve: 9.5 cm/sec Lat E/e': 10.1 Procedure A complete two-dimensional transthoracic echocardiogram was performed (2D, M-mode, Doppler and color flow Doppler). The study was technically difficult with many images being suboptimal in quality. Left Ventricle The left ventricular size, thickness and function are normal. The left ventricular ejection fraction is normal. Ejection Fraction = 55-60%. Regional wall motion abnormalities cannot be excluded due to limi javed visualization. Right Ventricle The right ventricle is normal in size and function. Atria Normal left and right atrial size and function. Mitral Valve There is no mitral regurgitation noted. Tricuspid Valve There is trace tricuspid regurgitation. There was insufficient TR detected to calculate RV systolic p ressure. Aortic Valve No hemodynamically significant valvular aortic stenosis. No aortic regurgitation is present. Pulmonic Valve There is no pulmonic valvular regurgitation. Great Vessels The aortic root is normal size. Pericardium/Pleura There is no pericardial effusion. Interpretation Summary The study was technically difficult with many images being suboptimal in quality. The left ventricular size, thickness and function are normal The right ventricle is normal in size and function. There is trace tricuspid regurgitation. MD Ridge Vanegas 10/23/2018 10:55 AM
--- NOTE | 2018-10-23 12:22 | PN ---
Teaching Attending Note Name of Resident: Ijeoma Hamilton ATTENDING PHYSICIAN STATEMENT I saw and evaluated the patient. I reviewed the resident's note and discussed the case with the resident. I agree with the resident's findings and plan as documented. SUBJECTIVE: Patient is comfortable but c/o having back pain left posteriorly. OBJECTIVE: Vital Signs Temperature 98 F 10/23/18 11:42 Pulse Rate 57 L 10/23/18 11:42 Respiratory Rate 18 10/23/18 06:29 Blood Pressure 128/77 10/23/18 11:42 O2 Sat by Pulse Oximetry (%) 98 10/23/18 11:42 GENERAL: The patient is awake, alert, and fully oriented, in no acute distress. HEAD: Normal with no signs of trauma. EYES: right eye blindness due to cataract, extraocular movements intact, sclera anicteric, conjunctiva clear. . ENT: Ears normal, oropharynx clear without exudates, moist mucous membranes. NECK: Trachea midline, full range of motion, supple. LUNGS: Breath sounds equal, clear to auscultation bilaterally, no wheezes, no crackles, no accessory muscle use. HEART: Regular rate and rhythm, S1, S2 positive, no rub or gallop. ABDOMEN: Soft, nontender, nondistended, normoactive bowel sounds, no guarding, no rebound, no hepatosplenomegaly, no masses. EXTREMITIES: 2+ pulses, warm, well-perfused, no edema. NEUROLOGICAL: Cranial nerves II through XII grossly intact. Normal speech, gait not observed. PSYCH: Normal mood, normal affect. SKIN: Warm, dry, normal turgor, no rashes or lesions noted CBCD WBC 5.7 K/mm3 (4.0-10.0) 10/23/18 08:30 RBC 4.91 M/mm3 (4.00-5.60) 10/23/18 08:30 Hgb 15.0 GM/dL (11.7-16.9) 10/23/18 08:30 Hct 43.1 % (35.4-49) 10/23/18 08:30 MCV 87.9 fl (80-96) 10/23/18 08:30 MCHC 34.7 g/dl (32.0-35.9) 10/23/18 08:30 RDW 13.5 % (11.9-15.9) 10/23/18 08:30 Plt Count 223 K/MM3 (134-434) 10/23/18 08:30 MPV 7.6 fl (7.5-11.1) 10/23/18 08:30 CMP Sodium 139 mmol/L (136-145) 10/23/18 08:30 Potassium 4.0 mmol/L (3.5-5.1) 10/23/18 08:30 Chloride 106 mmol/L (98-107) 10/23/18 08:30 Carbon Dioxide 28 mmol/L (21-32) 10/23/18 08:30 Anion Gap 5 MMOL/L (8-16) L 10/23/18 08:30 BUN 14.2 mg/dL (7-18) 10/23/18 08:30 Creatinine 0.7 mg/dL (0.55-1.3) 10/23/18 08:30 Random Glucose 98 mg/dL (74-106) 10/23/18 08:30 Calcium 8.9 mg/dL (8.5-10.1) 10/23/18 08:30 Total Bilirubin 0.7 mg/dL (0.2-1) 10/23/18 08:30 AST 24 U/L (15-37) 10/23/18 08:30 ALT 41 U/L (13-61) 10/23/18 08:30 Alkaline Phosphatase 70 U/L (45-117) 10/23/18 08:30 Total Protein 7.1 g/dl (6.4-8.2) 10/23/18 08:30 Albumin 3.9 g/dl (3.4-5.0) 10/23/18 08:30 CARDIAC ENZYMES Troponin I < 0.02 ng/ml (0.00-0.05) 10/23/18 08:30 Current Medications Generic Name Dose Route Start Last Admin Trade Name Freq PRN Reason Stop Dose Admin Acetaminophen 650 mg 10/23/18 05:14 Tylenol - PO Q4H PRN PAIN Enoxaparin Sodium 40 mg 10/23/18 10:00 10/23/18 10:09 Lovenox - SQ 40 mg DAILY DIANA Administration Pantoprazole Sodium 20 mg 10/23/18 07:00 10/23/18 07:41 Protonix - PO 20 mg ACBK DIANA Administration Home Medications Medication Instructions Recorded Famotidine [Pepcid] 20 mg PO DAILY #20 tablet 10/17/18 Ejection Fraction %: LVEF > or = 40 % ASSESSMENT AND PLAN: Steve Leger is a 43 year old male with a past medical history of R retina repair who is admitted for recurrent chest pain. #Chest Pain r/o acs , Ce is negative , CTA report that the line was infiltrated and unable to make any dx/read so we reorderd the test , and started on IVF #hx of R eye blindness: on eye drops on prednisolone continue will wait for the official report of CTA
[2018-10-23] MEDS ORDERED: SODIUM CHLORIDE 1,000 ML IV SCH (12:30)
--- NOTE | 2018-10-23 13:13 | PN ---
Physical Exam: SUBJECTIVE: Patient seen and examined at the bedside, he was asleep comfortably in bed. The patient was still endorsing chest pain in addition to a "burning sensation" in his back and some mild pain in his L arm and L leg. OBJECTIVE: Vital Signs Period Temp Pulse Resp BP Sys/Constantino Pulse Ox Last 24 Hr 97.8 F-98 F 52-58 18-20 108-135/57-87 98-98 GENERAL: Awake, alert, and fully oriented, in no acute distress. HEAD: Normal with no signs of trauma. EYES: Pupils equal, round and reactive to light, extraocular movements intact, injected conjunctiva R>L. EARS, NOSE, THROAT: Oropharynx clear without exudates. Moist mucous membranes. NECK: Normal range of motion, supple without lymphadenopathy. LUNGS: Breath sounds equal, clear to auscultation bilaterally. No wheezes, and no crackles. No accessory muscle use. HEART: Regular rate and rhythm, normal S1 and S2 without murmur. ABDOMEN: Soft, nontender, not distended, normoactive bowel sounds, no guarding, no rebound, no masses. MUSCULOSKELETAL: Normal range of motion at all joints. No bony deformities or tenderness. Reproducible chest pain to palpation at the L sternal border. UPPER EXTREMITIES: 2+ pulses, warm, well-perfused. No cyanosis. No clubbing. No peripheral edema. LOWER EXTREMITIES: 2+ pulses, warm, well-perfused. No calf tenderness. No peripheral edema. NEUROLOGICAL: Cranial nerves II-XII intact. Muscle strength 5/5 bilaterally upper and lower extremities. PSYCHIATRIC: Cooperative. Good eye contact. Appropriate mood and affect. SKIN: Warm, dry, normal turgor, no rashes or lesions noted, normal capillary refill. Laboratory Results - last 24 hr 10/23/18 10/23/18 10/23/18 01:30 01:30 01:30 WBC 5.9 RBC 4.95 Hgb 14.9 Hct 43.8 MCV 88.5 MCH 30.1 MCHC 34.0 RDW 13.6 Plt Count 235 MPV 8.0 Absolute Neuts (auto) 2.9 Neutrophils % 48.9 Lymphocytes % 38.3 Monocytes % 7.6 Eosinophils % 4.9 H Basophils % 0.3 Nucleated RBC % 0 Sodium Cancelled 141 Potassium Cancelled 4.1 Chloride Cancelled 104 Carbon Dioxide Cancelled 30 Anion Gap Cancelled 6 L BUN Cancelled 18.4 H Creatinine Cancelled 0.8 Est GFR (CKD-EPI)AfAm Cancelled 125.04 Est GFR (CKD-EPI)NonAf Cancelled 107.88 Random Glucose Cancelled 96 Calcium Cancelled 9.2 Magnesium Total Bilirubin Cancelled 0.4 AST Cancelled 23 ALT Cancelled 44 Alkaline Phosphatase Cancelled 86 Troponin I Total Protein Cancelled 7.4 Albumin Cancelled 4.0 Triglycerides Cholesterol Total LDL Cholesterol HDL Cholesterol Lipase 145 TSH Opiates Screen Methadone Screen Barbiturate Screen Phencyclidine Screen Ur Amphetamines Screen MDMA (Ecstasy) Screen Benzodiazepines Screen Cocaine Screen U Marijuana (THC) Screen 10/23/18 10/23/18 10/23/18 01:30 06:05 08:30 WBC 5.7 RBC 4.91 Hgb 15.0 Hct 43.1 MCV 87.9 MCH 30.5 MCHC 34.7 RDW 13.5 Plt Count 223 MPV 7.6 Absolute Neuts (auto) Neutrophils % Lymphocytes % Monocytes % Eosinophils % Basophils % Nucleated RBC % Sodium Potassium Chloride Carbon Dioxide Anion Gap BUN Creatinine Est GFR (CKD-EPI)AfAm Est GFR (CKD-EPI)NonAf Random Glucose Calcium Magnesium Total Bilirubin AST ALT Alkaline Phosphatase Troponin I < 0.02 Total Protein Albumin Triglycerides Cholesterol Total LDL Cholesterol HDL Cholesterol Lipase TSH Opiates Screen Negative Methadone Screen Negative Barbiturate Screen Negative Phencyclidine Screen Negative Ur Amphetamines Screen Negative MDMA (Ecstasy) Screen Negative Benzodiazepines Screen Negative Cocaine Screen Negative U Marijuana (THC) Screen Negative 10/23/18 10/23/18 08:30 08:30 WBC RBC Hgb Hct MCV MCH MCHC RDW Plt Count MPV Absolute Neuts (auto) Neutrophils % Lymphocytes % Monocytes % Eosinophils % Basophils % Nucleated RBC % Sodium 139 Potassium 4.0 Chloride 106 Carbon Dioxide 28 Anion Gap 5 L BUN 14.2 Creatinine 0.7 Est GFR (CKD-EPI)AfAm 132.09 Est GFR (CKD-EPI)NonAf 113.97 Random Glucose 98 Calcium 8.9 Magnesium 2.5 H Total Bilirubin 0.7 AST 24 ALT 41 Alkaline Phosphatase 70 Troponin I < 0.02 Total Protein 7.1 Albumin 3.9 Triglycerides 181 H Cholesterol 221 H Total LDL Cholesterol 138 H HDL Cholesterol 66 H Lipase TSH 2.90 Opiates Screen Methadone Screen Barbiturate Screen Phencyclidine Screen Ur Amphetamines Screen MDMA (Ecstasy) Screen Benzodiazepines Screen Cocaine Screen U Marijuana (THC) Screen Active Medications Generic Name Dose Route Start Last Admin Trade Name Freq PRN Reason Stop Dose Admin Acetaminophen 650 mg 10/23/18 05:14 Tylenol - PO Q4H PRN PAIN Enoxaparin Sodium 40 mg 10/23/18 10:00 10/23/18 10:09 Lovenox - SQ 40 mg DAILY DIANA Administration Sodium Chloride 1,000 mls @ 83 mls/hr 10/23/18 12:30 Normal Saline - IV 10/24/18 00:33 ASDIR DIANA Pantoprazole Sodium 20 mg 10/23/18 07:00 10/23/18 07:41 Protonix - PO 20 mg ACBK DIANA Administration EKG--> sinus bradycardia, no ST segment changes, QTc 420 ASSESSMENT/PLAN: Steve Leger is a 43 year old male with a past medical history of R retina repair who is admitted for recurrent chest pain. Chest Pain Dyspepsia hx of R retina repair Chest Pain - unclear origin of pain, r/o ACS, likely musculoskeletal vs gastro in origin - recent stress test performed, obtain records from office of Dr. Franco Martin - Per Dr. Tyler's note: Stress treadmill ECHO 3 months ago: no ischemia or arrhythmias; good exercise functional capacity (walked >10 minutes using Kenan protocol); asymptoamtic throughout the examination. - chest CTA nondiagnostic for PE or dissection due to infiltration of IV - Will repeat CTA this evening as previous study was non-diagnostic - If CTA is negaive, pt may be followed up as outpatient from cardiac perspective. -Dr. Tyler following, appreciate recommendations - Start statin. - GI consulted, evaluate for GI origin of pain, may need EGD - tylenol for pain Dyspepsia - previously on Pepcid with minor alleviation of pain - Protonix 20mg - GI consulted, may need evaluation via EGD Hx of R Retina repair - on prednisolone eye drops, need to confirm dose and amount with pharmacy FEN - no standing fluids - continue to monitor electrolytes and replete as necessary - regular diet Prophylaxis - Lovenox 40mg subq - early ambulation Code - full code Dispo: discharge pending results of repeat CTA Visit type - Emergency Visit Emergency Visit: Yes ED Registration Date: 10/23/18 Care time: The patient presented to the Emergency Department on the above date and was hospitalized for further evaluation of their emergent condition. - New Patient This patient is new to me today: Yes Date on this admission: 10/23/18 - Critical Care Critical Care patient: No - Discharge Referral Referred to [facility] Med P.C.: No ATTENDING PHYSICIAN STATEMENT I saw and evaluated the patient. I reviewed the resident's note and discussed the case with the resident. I agree with the resident's findings and plan as documented. SUBJECTIVE: OBJECTIVE: ASSESSMENT AND PLAN:
[2018-10-23 18:14] VITALS: BMI 33.9
--- NOTE | 2018-10-23 19:16 | CON.GI ---
Consult Consult Specialty:: GI Referred by:: Hospitalist Service Reason for Consultation:: Chest pain - History of Present Illness Chief Complaint: Chest Pain History of Present Illness: 43M admitted through [facility] for evaluation of intermittent left sided chest pain, left sided back pain, left arm pain, neck tightness and during one of these episodes he experienced left leg pain as well. Asked to exclude GERD as a cause of this. He denies nausea, vomiting, frequent reflux symptomatology, dysphagia, odynophagia, abdominal pain, diarrhea. He has never had an upper endoscopy or colonoscopy. There is no family history of colorectal cancer or other GI malignancy. He states having had an unrevealing stress test three months ago. He had a CTA of the C/A/P that ? needed to be redone due to IV contrast infiltration. He ate dinner without any complaints. - History Source History Provided By: Patient, Medical Record Limitations to Obtaining History: No Limitations - Past Surgical History Past Surgical History: Yes: Cataract Removal Additional Surgical History: Retinal tear repair in right eye. - Alcohol/Substance Use Hx Alcohol Use: No History of Substance Use: reports: None - Smoking History Smoking history: Former smoker - Social History Usual Living Arrangement: With Spouse ADL: Independent Occupation: Works in restaurant kitchen Place of : Other History of Recent Travel: No Home Medications - Allergies Allergies/Adverse Reactions: Allergies Allergy/AdvReac Type Severity Reaction Status Date / Time No Known Allergies Allergy Verified 10/23/18 01:09 - Home Medications Home Medications: Ambulatory Orders Famotidine [Pepcid] 20 mg PO DAILY #20 tablet 10/17/18 Prednisolone Acetate/Pf [Prednisolone Acet 1% Eye Drop] 5 ml OP BID 10/23/18 Family Disease History - Family Disease History Family Disease History: Other: Father ( when patient was 4 y/o: accident), Mother (Alive: HTN, DMII), Brother (4, healthy), Sister (4, healthy), Daughter ( 2, healthy) Other Family History: No h/o colorectal cancer or other GI malignancy Review of Systems - Review of Systems Constitutional: denies: Chills, Loss of Appetite, Unintentional Wgt. Loss Cardiovascular: reports: Chest Pain. denies: Shortness of Breath Respiratory: denies: Cough Gastrointestinal: denies: Abdominal Pain, Bloating, Constipation, Diarrhea, Dysphagia, Indigestion, Melena, Nausea, Rectal Bleeding, Vomiting, Vomiting Blood Physical Exam-GI Vital Signs: Vital Signs Temperature 98.6 F 10/23/18 18:06 Pulse Rate 62 10/23/18 18:06 Respiratory Rate 18 10/23/18 18:06 Blood Pressure 124/72 10/23/18 18:06 O2 Sat by Pulse Oximetry (%) 100 10/23/18 18:06 Constitutional: Yes: Calm Eyes: No: Sclera Icterus Cardiovascular: Yes: Regular Rate and Rhythm Respiratory: Yes: CTA Bilaterally Gastrointestinal Inspection: No: Distention, Scars ...Auscultate: Yes: Normoactive Bowel Sounds ...Palpate: Yes: Soft. No: Hepatomegaly, Splenomegaly, Tenderness ...Percussion: No: Tympanitic Edema: No (No LE edema) Neurological: Yes: Alert Labs: CBC, BMP 10/23/18 08:30 10/23/18 08:30 Hepatic Panel Total Bilirubin 0.7 mg/dL (0.2-1) 10/23/18 08:30 AST 24 U/L (15-37) 10/23/18 08:30 ALT 41 U/L (13-61) 10/23/18 08:30 Alkaline Phosphatase 70 U/L (45-117) 10/23/18 08:30 Albumin 3.9 g/dl (3.4-5.0) 10/23/18 08:30 Problem List - Problems (1) Atypical chest pain Assessment/Plan: Being evaluated by primary team and cardiology Protonix 40mg once daily No GI interventions planned at this time. There is not a good correlation between atypical chest pain and overt esophageal GERD. When alternate etiologies excluded and cardiac etiology excluded,can have further GI work-up as outpatient. I gave Mr. Hal Leger my office card and advised that he call when acute issues are resolved to arrange appointment. Code(s): R07.89 - OTHER CHEST PAIN
[2018-10-23] MEDS ORDERED: prednisoLONE ACETATE 1% OPHTH SUSP 5 ML BOTTLE OU SCH (22:00)
[2018-10-24 08:00] LABS: HEMATOCRIT 43.9 % (35.4-49); HEMOGLOBIN 15.3 GM/dL (11.7-16.9); MCH 30.5 pg (25.7-33.7); MCHC 34.8 g/dl (32.0-35.9); MEAN CELL VOLUME 87.9 fl (80-96); MEAN PLT VOLUME 7.8 fl (7.5-11.1); PLATELET COUNT 228 K/MM3 (134-434); RDW 13.7 % (11.9-15.9); WHITE BLOOD COUNT 6.2 K/mm3 (4.0-10.0)
[2018-10-24 08:04] VITALS: BP 112/67; PULSE 60; TEMP 98
--- NOTE | 2018-10-24 08:13 | DS ---
Physical Exam: SUBJECTIVE: Patient seen and examined at the bedside. There were no acute events overnight. The patient had a repeat CTA last night which did not show any evidence of dissection or aneurysm. OBJECTIVE: Vital Signs Period Temp Pulse Resp BP Sys/Constantino Pulse Ox Last 24 Hr 97.7 F-98.7 F 48-66 16-18 105-128/60-77 98-100 PHYSICAL EXAM GENERAL: Awake, alert, and fully oriented, in no acute distress. HEAD: Normal with no signs of trauma. EYES: Pupils equal, round and reactive to light, extraocular movements intact, injected conjunctiva R>L. EARS, NOSE, THROAT: Oropharynx clear without exudates. Moist mucous membranes. NECK: Normal range of motion, supple without lymphadenopathy. LUNGS: Breath sounds equal, clear to auscultation bilaterally. No wheezes, and no crackles. No accessory muscle use. HEART: Regular rate and rhythm, normal S1 and S2 without murmur. ABDOMEN: Soft, nontender, not distended, normoactive bowel sounds, no guarding, no rebound, no masses. MUSCULOSKELETAL: Normal range of motion at all joints. No bony deformities or tenderness. Reproducible chest pain to palpation at the L sternal border. UPPER EXTREMITIES: 2+ symmetric pulses, warm, well-perfused. No cyanosis. No clubbing. No peripheral edema. LOWER EXTREMITIES: 2+ symmetric pulses, warm, well-perfused. No calf tenderness. No peripheral edema. NEUROLOGICAL: Cranial nerves II-XII intact. Muscle strength 5/5 bilaterally upper and lower extremities. PSYCHIATRIC: Cooperative. Good eye contact. Appropriate mood and affect. SKIN: Warm, dry, normal turgor, no rashes or lesions noted, normal capillary refill. LABS Laboratory Results - last 24 hr 10/23/18 10/23/18 10/23/18 08:30 08:30 08:30 WBC 5.7 RBC 4.91 Hgb 15.0 Hct 43.1 MCV 87.9 MCH 30.5 MCHC 34.7 RDW 13.5 Plt Count 223 MPV 7.6 Sodium 139 Potassium 4.0 Chloride 106 Carbon Dioxide 28 Anion Gap 5 L BUN 14.2 Creatinine 0.7 Est GFR (CKD-EPI)AfAm 132.09 Est GFR (CKD-EPI)NonAf 113.97 Random Glucose 98 Calcium 8.9 Magnesium 2.5 H Total Bilirubin 0.7 AST 24 ALT 41 Alkaline Phosphatase 70 Troponin I < 0.02 Total Protein 7.1 Albumin 3.9 Triglycerides 181 H Cholesterol 221 H Total LDL Cholesterol 138 H HDL Cholesterol 66 H TSH 2.90 10/24/18 06:28 WBC 6.2 RBC 5.00 Hgb 15.3 Hct 43.9 MCV 87.9 MCH 30.5 MCHC 34.8 RDW 13.7 Plt Count 228 MPV 7.8 Sodium Potassium Chloride Carbon Dioxide Anion Gap BUN Creatinine Est GFR (CKD-EPI)AfAm Est GFR (CKD-EPI)NonAf Random Glucose Calcium Magnesium Total Bilirubin AST ALT Alkaline Phosphatase Troponin I Total Protein Albumin Triglycerides Cholesterol Total LDL Cholesterol HDL Cholesterol TSH HOSPITAL COURSE: Date of Admission:10/23/18 Mr. Hong is a 43 year old man with pmhx of R retinal repair admitted for recurrent chest pain that was now associated with "burning" back pain. Work up included physical exam which revealed symmetric bilateral pulses and chest pain reproducible by palpation. The patient's EKG was unchanged from the previous visit, troponins were negative. A CTA was performed but was not able to definitively rule out aortic disseciton because the IV was infiltrated. The study was repeated in the evening and was of good quality. The repeat CTA showed no evidence of dissection or aneurysm. Both GI and Cardiology evaluated the patient and determined the patient was medically stable for discharge with plans to follow up with his primary care doctor and cardiology as an outpatient. Date of Discharge: 10/24/18 Minutes to complete discharge: 40 Discharge Summary Reason For Visit: CHEST PAIN Condition: Stable - Instructions Diet, Activity, Other Instructions: You came into the hospital with complaints of chest pain . You had an EKG and Echocardiogram of your heart both of which were normal. You were seen by cardiology (Dr. Tyler) and your exam was normal and you were cleared to be discharged home. Medications: Please resume all of your home medications. Follow ups: Please follow up with Dr. Tyler within 1 week and follow up with your masonry inspector within a week and need repeat Cat scan with contrast since your line was infiltrated in the hospital we cannot do the cat scan for another 2 days, follow up with your primary to have this test repeated as an outpatient. We are referring you to the resident clinic located at [address] [place] [address] ([phone]). Please make an appointment within 1 week, or follow up with the clinic if you are not able to see your manager primary. If you experience worsening chest pains, shortness of breath, nausea, vomiting please return to the emergency room immediately. Referrals: Praveen Mujica MD [Staff Physician] - 1 Week Pola Milligan MD [Staff Physician] - 1 Week (Please Do CTA of the chest ) Adonay Tyler MD [Staff Physician] - 1 Week Disposition: HOME - Home Medications Comprehensive Discharge Medication List: Ambulatory Orders Famotidine [Pepcid] 20 mg PO DAILY #20 tablet 10/17/18 Prednisolone 1% Ophthalmic [Pred Forte 1% -] 1 drop OU BID drops 10/23/18 Prednisolone Acetate/Pf [Prednisolone Acet 1% Eye Drop] 5 ml OP BID 10/23/18 This patient is new to me today: No Emergency Visit: Yes ED Registration Date: 10/23/18 Care time: The patient presented to the Emergency Department on the above date and was hospitalized for further evaluation of their emergent condition. Critical Care patient: No - Discharge Referral Referred to [facility] Med P.C.: No ATTENDING PHYSICIAN STATEMENT I saw and evaluated the patient. I reviewed the resident's note and discussed the case with the resident. I agree with the resident's findings and plan as documented. SUBJECTIVE: OBJECTIVE: ASSESSMENT AND PLAN:
[2018-10-24 08:37] LABS: ALBUMIN 3.8 g/dl (3.4-5.0); BILIRUBIN,TOTAL 0.8 mg/dL (0.2-1); BLOOD UREA NITROGEN 12.9 mg/dL (7-18); CALCIUM 9.2 mg/dL (8.5-10.1); CREATININE 0.7 mg/dL (0.55-1.3); MAGNESIUM 2.7 mg/dL (1.8-2.4); POTASSIUM 4.2 mmol/L (3.5-5.1)
[2018-10-24] MEDS ORDERED: PANTOPRAZOLE 40 MG TABLET (FP) PO SCH (10:00)
== END 2018-10-24 06:46 | disposition home or self-care (01) ==
LOC: JER 00:51 → JERBED 04:25 → J4W 18:05
PROVIDERS: ADMIT Internal Medicine; ATTEND Internal Medicine
CPT/HCPCS: 36415; 71045-TC-FY; 71275-TC; 74174-TC; 74175-TC; 80053; 80061; 80307; 83690; 83721; 83735; 84443; 84484; 85025; 85027; 93005; 93010; 93306-TC; 99284-25; G0378; J0131; J7030

== ENCOUNTER 2020-04-19 01:36 | Emergency (ER) | payer OTHER ==
[2020-04-19 02:17] VITALS: BP 144/86; PULSE 70; TEMP 98.4; BMI 35.9
[2020-04-19] MEDS ORDERED: ACETAMINOPHEN 500 MG TABLET (FP) PO ONE (03:38)
[2020-04-19] MEDS ORDERED: ACETAMINOPHEN 325 MG TABLET (FP) ONE (03:39)
[2020-04-19] MEDS ORDERED: DEXAMETHASONE SOD PHOSPHATE 10 MG/1 ML VIAL IM ONE (05:33)
[2020-04-19] MEDS ORDERED: KETOROLAC TROMETHAMINE 15 MG/ML VIAL IM ONE (05:33)
[2020-04-19] MEDS ORDERED: KETOROLAC TROMETHAMINE 15 MG/ML VIAL ONE (05:37)
[2020-04-19] MEDS ORDERED: DEXAMETHASONE SOD PHOSPHATE 10 MG/1 ML VIAL ONE (05:37)
== END 2020-04-19 05:48 | disposition home or self-care (01) ==
LOC: JER 01:36
PROC: 3E023GC Introduction of Other Therapeutic Substance into Muscle, Percutaneous Approach (ICD-10-PCS; principal; 2020-04-19)
DX: H81.391 Other peripheral vertigo, right ear (principal); H92.02 Otalgia, left ear; G56.03 Carpal tunnel syndrome, bilateral upper limbs
CPT/HCPCS: 70450-TC; 72125-TC; 99284-25; J1100